=== PATIENT | female | born 1955 | race Caucasian/White ===

== ENCOUNTER 2022-02-27 14:00 | Outpatient (RCR) | payer MEDICARE, SELFPAY ==
--- NOTE | 2021-11-30 14:26 | HP.PTEVAL ---
Patient's Visit Information BRANDON CLAY is a 66 year old F referred to Physical Therapy by Dr. Mann Borges MD with a diagnosis of L knee OA,. Date of Evaluation: 11/30/21 Physical Therapist: Lauri Ren DPT - Visit Plan Frequency: 2x /Week Duration: 6 Weeks Plan: Start with ROM and strengthening in aquatic setting. Add in general mobility and flexibility as tolerated. Pt. reports she is to work on getting stronger and increase her ROM in order to tolerate PT better. - Subjective Patient reports that she has left knee pain- insidious onset 2 months ago. 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 She has had 33 surgeries over the years and needs a left knee replacement. She reports that Dr. Borges wants her to get stronger in the pool before she can have surgery. The pain is located along the medial and lateral joint line. She had a fall 3-4 days ago and now she is having problems lifting up the leg. She has started falling more since this has happened. The pain radiates into the hip and if she does to much in the ankle. Pain is aggravated by everything- dressing, putting on shoes, stairs, standing up after sitting Eases: laying down with a pillow between her knees. Worst: 9/10 Best: 0/10. Describes the pain as sharp and shooting. Can't sit for long periods of time because she can't get up. She does not use an AD but does have access to them if she needs- but think she may have to use the walker. She has a lot of medical issues so her MD plans to send to [place] for Medical Marijuana. She is fully I with all ADL's- but has had to slow down the last few months due to the pain. She is no longer able to walk through grocery store so she uses the cart. She does still drive- out of necessity. - Pain L knee Pain Intensity (Out of 10): 9 Pain Intensity Range: 3, 8 Comment: A lot of pain at night - Objective POSTURE: Pt. has general flexed posture. increased genu valgum. L worse than R. PALPATION: Pt. has increased tenderness along LLE, worse at medial joint line. NEURO: Pt. has normal sensation in BLEs, normal DTR of BLEs. ROM: L knee 0-15-85deg in supine very painful at end ranges. R knee: 0-0- 125deg. MMT: LLE: ankle: 5/5; knee: ext 4-/5, flexion 4-/5; hip- Flexion 3-/5, abd 3-/4, ext 3-/5. Core strength: poor. GAIT: Pt. ambulates without AD, but has marked L genu valgum, marked lack of TKE during stance phase and limited knee flexion during swing. Pt. reports high levels of pain during stance phase Pt. was able to ambulate 180feet prior to needing to sit due to pain in L knee. STAIRS: Pt. is very painful with step to pattern, unable to load LLE during stairs. - Balance/Special Test Scores Tinetti Balance Score: 6 Tinetti Gait Score: 4 Tinetti Balance & Gait Score: 10 Lower Extremity Functional Score: 11 TUG Test Time Seconds: 39 30 Second Chair Rise Test Seconds: 2 - Goals Goal 1:: LTG: Pt. be able to complete HEP with good independence for L knee ROM and strengthening. Goal Time Frame: 4-6 Weeks Goal 2:: STG: Pt. to have increased ROM by 10deg in both directions with out increase in symptoms. Goal Time Frame: 2-4 Weeks Goal 3:: STG: pt. to sleep throughout the night without increase in symptoms. Goal Time Frame: 2-4 Weeks Goal 4:: LTG: Pt. ambulate with out AD with improved gait pattern with good tolerance for 500+. Goal Time Frame: 4-6 Weeks Goal 5:: LTG: Pt. to have increased LLE strength symmetrical to R side allowing for increased ability to complete all ADls with increased tolerance. Goal Time Frame: 4-6 Weeks - Rehabilitation Potential Physical Therapy Diagnosis: Pt. has signs and symptoms of L knee OA with subsequent hypomobility, weakness, difficulty walking, difficulty with stairs and increased pain. Pt. would benefit from PT in aquatic setting to increase ROM, increase strength and increase tolerance to all functional mobility. She is expected to have surgery later this year, but needs to be stronger prior to doing so. Rehabilitation Potential: Fair - Anticipated Interventions Patient/Client Instruction: Educate patient on: Condition, Plan of Care, Risk Factors, Benefits of Fitness Program For the Purpose of:: To foster healthy habits, To improve decision making, To facilitate caregiver knowledge, To improve self management, To prevent re-injury, To improve ability to perform tasks related to life management Therapeutic Exercise to Include: Strength training, Power training, Balance training, Coordination, Body mechanics, Postural training, Flexibilty training, Gait and locomotor training, In an aquatic setting, Active ROM For the Purpose of:: To decrease pain, To decrease swelling/inflammation, To increase ROM, To improve nutrient delivery to tissue, To increase oxygenation perfusion, To improve muscle performance and motor function, To improve ability to perform ADL's, To improve ability of physical actions for home/community/work/leisure, To improve gait and locomotor functions, To decrease soft tissue restriction, To increase flexibility/ROM Thank you for the opportunity to evaluate your patient. For Medicare and Medicare HMO plans, please review the plan of care and approve it. It will need to be FAXED BACK to us at [phone] for Medicare purposes. For Medicare only, by signing this I certify the plan of care. Please let me know if there are questions or concerns regarding this plan of care. Physician Signature: Date:
--- NOTE | 2022-02-10 10:52 | HP.PTREVAL_ITS ---
Dr. Mann Borges MD, It has been my pleasure to treat BRANDON CLAY over the last 2 visits for L knee OA,. Please see the progress note below for an update on the physical therapy plan of care! Subjective: Pt. arrives today after not coming in for a few months. She reports having trouble with her insurance issues. Pt. reports to have surgery March 13. for a L total knee replacement. Pt. is to work in aquatic setting to increase BLE strength and ROM. Objective/Function: ROM: L knee 0-10-81deg. Pain at end ranges. R knee 0-0- 108deg. Pain with over pressures. MMT: RLE 4+/5 throughout. LLE: ankle 5/5 throughout; knee: ext 4/5, flexion 4-/5; hip: flexion 4/5, abd 4/5, ext 4/5. GAIT: Pt. ambulates without AD. Pt. has decreased L knee flexion during swing, lacks TKE during stance phase. Marked valgus L knee positioning during L stance phase. She tends to slide LLE during swing phase. STAIRS: step to pattern with 2 HR with increased pain during Bilateral stance phase for both ascending/descending. Pt. has marked L knee valgus with both ascending/descending. Plan Plan: Pt. to work on BLE strengthening, add in L knee ROM, L glute strengthening. Progress gait as tolerated in preparation for L TKA in March. Balance/Gait/Functional tests - Balance/Special Test Scores Tinetti Balance Score: 6 Tinetti Gait Score: 4 Tinetti Balance & Gait Score: 10 Lower Extremity Functional Score: 11 TUG Test Time Seconds: 39 Tug Test: >30sec.=impaired mobility 30 Second Chair Rise Test Seconds: 2 Goals Goal 1:: LTG: Pt. be able to complete HEP with good independence for L knee ROM and strengthening. Goal Time Frame: 4-6 Weeks Goal 2:: STG: Pt. to have increased ROM by 10deg in both directions with out increase in symptoms. Goal Time Frame: 2-4 Weeks Goal 3:: STG: pt. to sleep throughout the night without increase in symptoms. Goal Time Frame: 2-4 Weeks Goal 4:: LTG: Pt. ambulate with out AD with improved gait pattern with good tolerance for 500+. Goal Time Frame: 4-6 Weeks Goal 5:: LTG: Pt. to have increased LLE strength symmetrical to R side allowing for increased ability to complete all ADls with increased tolerance. Goal Time Frame: 4-6 Weeks Anticipated Interventions Patient/Client Instruction: Educate patient on: Condition, Plan of Care, Risk Factors, Benefits of Fitness Program For the Purpose of:: To foster healthy habits, To improve decision making, To facilitate caregiver knowledge, To improve self management, To prevent re- injury, To improve ability to perform tasks related to life management Therapeutic Exercise to Include: Strength training, Power training, Balance training, Coordination, Body mechanics, Postural training, Flexibilty training, Gait and locomotor training, In an aquatic setting, Active ROM For the Purpose of:: To decrease pain, To decrease swelling/inflammation, To increase ROM, To improve nutrient delivery to tissue, To increase oxygenation perfusion, To improve muscle performance and motor function, To improve ability to perform ADL's, To improve ability of physical actions for home/community/work/leisure, To improve gait and locomotor functions, To decrease soft tissue restriction, To increase flexibility/ROM Please do not hesitate to contact me at [phone] by phone or if you have questions or concerns regarding this new plan of care! Sincerely, JOHN PAUL BainsT
--- NOTE | 2022-03-14 14:34 | HP.PT.NRP ---
BRANDON CLAY was seen in my office for initial evaluation on 11/30/21. The following Plan of Care was established for this patient: Initial Frequency: 2x /Week Initial Duration: 6 Weeks Patient/Client Instruction: Educate patient on: Condition, Plan of Care, Risk Factors, Benefits of Fitness Program For the Purpose of:: To foster healthy habits, To improve decision making, To facilitate caregiver knowledge, To improve self management, To prevent re-injury, To improve ability to perform tasks related to life management Therapeutic Exercise to Include: Strength training, Power training, Balance training, Coordination, Body mechanics, Postural training, Flexibilty training, Gait and locomotor training, In an aquatic setting, Active ROM For the Purpose of:: To decrease pain, To decrease swelling/inflammation, To increase ROM, To improve nutrient delivery to tissue, To increase oxygenation perfusion, To improve muscle performance and motor function, To improve ability to perform ADL's, To improve ability of physical actions for home/community/work/leisure, To improve gait and locomotor functions, To decrease soft tissue restriction, To increase flexibility/ROM This patient was last seen in our office 03/01/22. Pertinent comments regarding their Physical therapy will appear below: Pt. was seen in the pool for knee ROM and strengthening. She had a hard time scheduling initially, but eventually was able to attend 5 visits in PT. She was still having soreness in her knee at her last aquatic appointment. She is planning to have surgery in a few weeks and will be DC to [facility] at this point in time. At this point I will be discontinuing this patient from physical therapy. I would be happy to see this patient again in the future if found appropriate by the physician. Thank you! Lauri Ren DPT Balance/Gait/Functional tests - Balance/Special Test Scores Tinetti Balance Score: 6 Tinetti Gait Score: 4 Tinetti Balance & Gait Score: 10 Lower Extremity Functional Score: 11 TUG Test Time Seconds: 39 Tug Test: >30sec.=impaired mobility 30 Second Chair Rise Test Seconds: 2
== END 2022-02-27 19:00 | disposition home or self-care (01) ==
LOC: PT 14:00
PROVIDERS: PCP Family Medicine; Referring Provider Specialist; Visit Provider Specialist
DX: M17.12 Unilateral primary osteoarthritis, left knee (principal); M21.062 Valgus deformity, not elsewhere classified, left knee; E66.8 Other obesity
CPT/HCPCS: 97113; 97161; 97164

== ENCOUNTER 2023-11-29 16:20 | Emergency (ER) | payer MEDICARE, SELFPAY ==
[2023-11-29 16:20] VITALS: BP 149/70; PULSE 85; RESP 16; TEMP 36.1; O2SAT 99
--- NOTE | 2023-11-29 16:52 | EX.ED.GENINJ ---
HPI History of Present Illness Chief Complaint: Fall Detail of Chief Complaint: Injury due to fall Onset/Context/Timing Onset: Today and Hours Mechanism/Context: Fall Location of pain/injuries: - (Nose, dorsal ulnar side of left wrist and right shoulder as well as upper lip.) Quality of Pain: Dull and Aching Current Severity: Mild Maximum Severity: Moderate Worsened by: Palpation of the nose Relieved by: Nothing Associated Symptoms Associated Symptoms: Positive for Loss of function (Left upper extremity); Negative for Parasthesias, Weakness, Inability to ambulate, Loss of consciousness or Amnesia Narrative Narrative: Patient is a 68-year-old female. She was at the grocery store. She fell. She sustained injury to her upper lip, nose, dorsum left wrist and right shoulder. Patient presents because she has limited range of motion because of pain and swelling of her right shoulder. She is not on an anticoagulant. She denies loss of consciousness. She denies injury to her teeth or her bite being off. She denies jaw pain. She denies double vision blurred vision loss of vision. Nuys ringing ears decreased hearing. She denies neck pain. She denies paresthesia, anesthesia motors upper or lower extremity. She denies chest pain or shortness of breath. She denies nausea or vomiting. Tetanus Immunization: 5-10 years Prior similar symptoms: No Recent Illness/Hospitalization: No PFSH PFSH Home Medications Vancomycin [Vancocin] 125 mg PO Q6H ##28 07/30/14 [Rx Last Taken Unknown] albuterol sulfate 90 mcg/actuation aerosol inhaler (ProAir HFA) 2 puff inhalation Q4H PRN PRN Sob Or Anxiety 07/30/14 [History Last Taken Unknown] bethanechol chloride 25 mg tablet 25 mg PO DAILY 07/30/14 [History Last Taken Unknown] dicyclomine 10 mg capsule 10 mg PO TIDAC 07/30/14 [History Last Taken Unknown] fexofenadine 180 mg tablet (Mucinex Allergy) 180 mg PO DAILY 07/30/14 [History Last Taken Unknown] fluticasone 250 mcg-salmeterol 50 mcg/dose blistr powdr for inhalation (Advair Diskus) 1 puff inhalation BID 07/30/14 [History Last Taken Unknown] hyoscyamine sulfate 0.125 mg sublingual tablet 0.125 mg sublingual Q4H PRN PRN Cough 07/30/14 [History Last Taken Unknown] insulin glargine 100 unit/mL (3 mL) subcutaneous pen (Lantus Solostar U-100 Insulin) 28 units subcut QHS 07/30/14 [History Last Taken Unknown] insulin regular human 100 unit/mL injection solution (Novolin R Regular U-100 Insulin) 0 unit subcut TIDCM 07/30/14 [History Last Taken Unknown] lactulose 10 gram/15 mL oral solution 20 g PO TID PRN PRN Constipation 07/30/14 [History Last Taken Unknown] lamotrigine 150 mg tablet 150 mg PO BID 07/30/14 [History Last Taken Unknown] levetiracetam 500 mg tablet 500 mg PO BID 07/30/14 [History Last Taken Unknown] levothyroxine 25 mcg tablet 25 mcg PO DAILY 07/30/14 [History Last Taken Unknown] losartan 25 mg tablet 25 mg PO DAILY 07/30/14 [History Last Taken Unknown] montelukast 10 mg tablet 10 mg PO DAILY 07/30/14 [History Last Taken Unknown] nystatin 100,000 unit/mL oral suspension 5 ml PO 4X/DAY 07/30/14 [History Last Taken Unknown] omeprazole 20 mg capsule,delayed release 20 mg PO BID 07/30/14 [History Last Taken Unknown] ondansetron 4 mg disintegrating tablet 4 mg PO Q6H PRN PRN Nausea 07/30/14 [History Last Taken Unknown] ondansetron 8 mg disintegrating tablet (Zofran ODT) 8 mg PO Q6H PRN PRN Nausea 07/30/14 [History Last Taken Unknown] oxycodone 10 mg tablet,crush resistant,extended release 12 hr (OxyContin) 10 mg PO Q6H PRN PRN Pain 07/30/14 [History Last Taken Unknown] paroxetine HCl 30 mg tablet (Paxil) 30 mg PO BID 07/30/14 [History Last Taken Unknown] rosuvastatin 20 mg tablet (Crestor) 20 mg PO DAILY 07/30/14 [History Last Taken Unknown] tizanidine 6 mg capsule (Zanaflex) 6 mg PO Q8H PRN PRN Muscle Pain 07/30/14 [History Last Taken Unknown] triamcinolone acetonide 0.1 % dental paste 1 applic topical BID 07/30/14 [History Last Taken Unknown] zolpidem 10 mg tablet (Ambien) 10 mg PO QHS 07/30/14 [History Last Taken Unknown] hydrocodone-acetaminophen 5-325mg 5mg-325mg 1 tab PO Q6H PRN PRN Pain 3 days #10 TABLETS 11/29/23 [Rx Last Taken Unknown] Allergy/AdvReac Type Severity Reaction Status Date / Time JULIA Inhibitors Allergy Swelling Verified 11/29/23 16:25 acetaminophen Allergy Unknown Verified 11/29/23 16:25 [From Darvocet-N 100] ciprofloxacin [From Cipro] Allergy Unknown Verified 11/29/23 16:25 ciprofloxacin HCl Allergy Unknown Verified 11/29/23 16:25 [From Cipro] clindamycin Allergy Nausea/Vom/ Verified 11/29/23 16:25 Diarrhea erythromycin base Allergy Swelling Verified 11/29/23 16:25 [Erythromycin Base] metronidazole [From Flagyl] Allergy Unknown Verified 11/29/23 16:25 Penicillins Allergy Unknown Verified 11/29/23 16:25 propoxyphene napsylate Allergy Nausea/Vom/ Verified 11/29/23 16:25 [From Darvocet-N 100] Diarrhea atorvastatin calcium AdvReac Diarrhea Verified 11/29/23 16:25 [From Lipitor] cyclobenzaprine HCl AdvReac Swelling Verified 11/29/23 16:25 [From Flexeril] metformin AdvReac Nausea/Vom/ Verified 11/29/23 16:25 Diarrhea Sulfa (Sulfonamide AdvReac Nausea/Vom/ Verified 11/29/23 16:25 Antibiotics) Diarrhea Tetracyclines AdvReac Unknown Verified 11/29/23 16:25 Social History Smoking Status: Current every day smoker tobacco type: cigarettes ROS ROS ED Constitutional Constitutional ED: Denies chills, fever(s) or subjective Eyes Eyes: Denies blurry vision or change in vision ENT ENT ED: Reports other Details: Complains of nose pain and laceration upper lip ; Denies ear pain, rhinorrhea or sore throat Cardiovascular Cardiovascular: Denies chest pain, palpitations, paroxysmal nocturnal dyspnea or racing heartbeat Respiratory/Chest Respiratory/Chest: Denies cough, dyspnea, dyspnea on exertion or paroxysmal nocturnal dyspnea Gastrointestinal Gastrointestinal: Denies abdominal pain, constipation, nausea or vomiting Genitourinary Genitourinary ED: Denies dysuria, hematuria or urinary frequency Musculoskeletal Musculoskeletal: Denies arthralgias, back pain, myalgias or neck pain Integumentary Reports Abrasions and other Details: Abrasion bridge of the nose, dorsum left wrist Neurologic Neurologic: Denies headache(s), paresthesias or weakness Psychiatric Psychiatric: Denies anxiety or depression Endocrine Endocrinology: Denies cold intolerance or heat intolerance Hematologic/Lymphatic Hematologic/Lymphatic: Denies easy bleeding or easy bruising EXAM Physical Exam Const Vital Signs: 11/29/23 16:20 11/29/23 17:29 Temperature 96.9 F L Temperature Source Temporal Pulse Rate 85 Respiratory Rate 16 Respiratory Effort Normal Respiratory Depth Normal Respiratory Pattern Normal Blood Pressure 149/70 H Blood Pressure Mean 96 Pulse Ox 99 Oxygen Delivery Method Room Air Room Air Positive well nourished and well developed General Appearance ED: well developed and NAD HEENT Reports TM's clear HEENT Narrative: Patient has abrasion nose. There is no septal deviation hematoma. There is no CSF otorrhea or rhinorrhea. Negative raccoon or porras Porras sign. No hemotympanum. No evidence of ear trauma. There is no evidence of dental trauma. Patient does have a small laceration buccal surface of the upper lip. This is approximately 4 mm in length. trauma and tenderness Nose: Negative for septum abnormal Tympanic Membrane ED: Yes TM's clear Eyes PERRL and EOMs intact bilaterally General Eye ED: Yes other Other Details: There is no nystagmus. There is no subconjunctival hemorrhage Neck full ROM General: Negative for tenderness Chest Wall inspection of chest normal and palpation of chest normal Resp normal respiratory effort and clear to auscultation bilaterally Cardio regular rhythm, S1 normal heart sound, S2 normal heart sound and no murmurs GI normal to inspection, nondistended, normoactive bowel sounds, non-tender, non-distended and no masses Back/Spine normal to inspection and no thoracic nor lumbar tenderness Extremity Negative for normal to inspection Extremity Narrative: Ulnar dorsal surface side of the left wrist near the ulnar styloid. There is no pain to palpation. Median, radial and ulnar function intact. The right shoulder is swollen in comparison left. There is a surgical scar on the left. Patient has limited range of motion. Axillary, median, radial and ulnar function intact. Neuro oriented x3, CN's II-XII intact bilaterally, moves all extremities, no focal motor deficits, no sensory deficits noted and gait normal [place] Coma Scale: document GCS findings Spontaneous Obeys Commands Oriented 15 Sensorium / Orientation: alert Psych mental status grossly normal and thought process normal Skin no rashes or lesions noted, No no wounds, skin turgor normal and no jaundice Trauma: abrasion MDM MDM MDM Narrative Medical decision making narrative: This patient no loss conscious no anticoagulant or antithrombotic per [place] CT head rules no imaging is required. C-spine was cleared per Nexus criteria. X-ray of the shoulder was obtained to evaluate for fracture versus dislocation. Suspect the former not the latter. Patient was medicated with oral hydrocodone and acetaminophen. Patient is taken opiate analgesics in the past. Radiography Chest X-Ray - ED: 2 View and Read by ED Physician (2 view x-ray reveals no evidence of fracture or dislocation. This is independently reviewed interpreted by me.) Diagnostic Testing: Clinical Impression(s) from Imaging Studies Shoulder X-Ray 11/29/23 16:56 IMPRESSION: Mild degenerative change. No acute fracture or dislocation Electronically Signed: Praneeth Olson MD at 17:16 EDT Reading Location ID and State: [facility] / [place] Tel , Service support , Treatment and Re-Evaluation Narrative: There is no fracture or dislocation noted. Patient complains of pain with internal/external rotation. Able to abduct about 60 degrees. Abduction to 90 degrees passively causes her significant discomfort. She has a positive drop test which raises concern for rotator cuff tear. Plan is discharge with sling follow-up with Dr. Falcon and pain medicine. Discharge Plan Triage Chief Complaint: Fall ED Provider: Dmitry Lay Dx/Rx/DC Orders Clinical Impression: Injury due to fall, Rotator cuff injury, Acute pain of right shoulder due to trauma, Laceration of lip, Abrasion of wrist, left Instructions: Rotator Cuff Tear, ED Abrasion, ED Laceration, Lip or Mouth Prescriptions: New hydrocodone-acetaminophen [hydrocodone-acetaminophen] 5-325 mg tablet 1 tab PO Q6H PRN PRN (Reason: Pain) 3 Days Qty: 10 0RF No Action fluticasone propion-salmeterol [Advair Diskus] 1 PUFF inhaler 1 puff inhalation BID fexofenadine [Mucinex Allergy] 180 MG tablet 180 mg PO DAILY bethanechol chloride 25 MG tablet 25 mg PO DAILY hyoscyamine sulfate 0.125 MG tablet, sublingual 0.125 mg sublingual Q4H PRN PRN (Reason: Cough) Patient Comments: 1-2 TABS zolpidem [Ambien] 10 MG tablet 10 mg PO QHS dicyclomine 10 MG capsule 10 mg PO TIDAC rosuvastatin [Crestor] 20 MG tablet 20 mg PO DAILY lamotrigine 150 MG tablet 150 mg PO BID nystatin 60 ML suspension 5 ml PO 4X/DAY levetiracetam 500 MG tablet 500 mg PO BID levothyroxine 25 MCG tablet 25 mcg PO DAILY insulin regular human [Novolin R Regular U100 Insulin] 100 UNIT/ML solution 0 unit subcut TIDCM Patient Comments: DOSE UNKNOWN losartan 25 MG tablet 25 mg PO DAILY omeprazole 20 MG capsule 20 mg PO BID montelukast 10 MG tablet 10 mg PO DAILY lactulose 10 GM/15 ML solution 20 g PO TID PRN PRN (Reason: Constipation) insulin glargine [Lantus Solostar U-100 Insulin] 100 UNITS/ML insulin pen 28 units subcut QHS oxycodone [OxyContin] 10 MG tablet 10 mg PO Q6H PRN PRN (Reason: Pain) Patient Comments: 1-2 TABS ondansetron [Zofran ODT] 8 MG tablet,disintegrating 8 mg PO Q6H PRN PRN (Reason: Nausea) triamcinolone acetonide 1 APPLIC paste 1 applic topical BID paroxetine HCl [Paxil] 30 MG tablet 30 mg PO BID albuterol sulfate [ProAir HFA] 1 PUFF inhaler 2 puff inhalation Q4H PRN PRN (Reason: Sob Or Anxiety) ondansetron 4 MG tablet 4 mg PO Q6H PRN PRN (Reason: Nausea) tizanidine [Zanaflex] 6 MG capsule 6 mg PO Q8H PRN PRN (Reason: Muscle Pain) Vancomycin [Vancocin] 125 MG capsule 125 mg PO Q6H Qty: 28 0RF Primary Care Provider: Leti Heaton Referrals: Leti Heaton DO [Primary Care Provider] - Chidi Falcon MD [Med Staff - Active Staff] - 3-5 Days Disposition Disposition: Home, Self Care
--- NOTE | 2023-11-29 16:56 | RAD_ITS ---
STUDY: X-RAY - RIGHT SHOULDER REASON FOR EXAM: Female, 68 years old. Injury/Pain TECHNIQUE: 2 view(s) of the shoulder. COMPARISON: None. FINDINGS: Narrowed glenohumeral articulation. Normal acromioclavicular joint. Normal acromion. Normal humeral head and visualized proximal humerus. The soft tissue structures are unremarkable. Normal visualized pulmonary apex. RAD/Shoulder min 2 Views IMPRESSION: Mild degenerative change. No acute fracture or dislocation Electronically Signed: Praneeth Olson MD at 17:16 EDT ,
[2023-11-29] MEDS: HYDROcodone Bitartrate/Apap 5/325 Tablet PO (17:28)
[2023-11-29 17:29] VITALS: BMI 29.7
== END 2023-11-29 18:22 | disposition home or self-care (01) ==
PROVIDERS: Emergency Provider Emergency Medicine; PCP Family Medicine; Visit Provider Emergency Medicine
DX: S01.511A Laceration without foreign body of lip, initial encounter (principal); S60.812A Abrasion of left wrist, initial encounter; F17.210 Nicotine dependence, cigarettes, uncomplicated; S46.001A Unspecified injury of muscle(s) and tendon(s) of the rotator cuff of right shoulder, initial encounter; W19.XXXA Unspecified fall, initial encounter
CPT/HCPCS: 73030; 99283